=== PATIENT | female | born 1980 | race Caucasian/White ===

== ENCOUNTER 2017-07-16 15:56 | Inpatient (IN) | payer OTHER ==
[~2017-07-16] VITALS: Ht 160 cm; Wt 104.3 kg
--- NOTE | 2017-07-16 16:55 | NUR ---
PT IN ED WITH C/O BILATERAL FOOT PAIN AND SWELLING X3 DAYS, PT ALSO HAS BLISTERS BETWEEN ALL HER TOES, PER PT HER HANDS ARE ALSO SWOLLEN, PT REPORTS BILATERAL LEG PAIN; PER PT HX OF HTN; PT REPORTS HER STEP DAD HAS MRSA AND SHE HAS RECENTLY BEEN WORKING ON HIS HOUSE; DR. MAYNARD AT BEDSIDE FOR MSE
--- NOTE | 2017-07-16 17:00 | NUR ---
PT DENIES ANY CHANCE OF , REPORTS TUBAL LIGATION AND LMP WAS 07/10/17, REPORTS UNABLE TO GO TO RESTROOM AT THIS TIME
[2017-07-16 17:24] LABS: BASOPHIL % 0.7 % (0-2); PLATELET COUNT 368 x10^3mcL (130-400); RED CELL DISTRIBUTION WIDTH 14.1 % (11.5-14.5)
--- NOTE | 2017-07-16 18:16 | NUR ---
NOTIFIED LAB THAT CMP IS NOT RECEIVED, ROTARY DRIER GOING TO LAB TO CHECK ON BLOOD, CBC ALREADY RESULTED
--- NOTE | 2017-07-16 18:21 | NUR ---
PT AAO4, NO ACUTE DISTRESS
--- NOTE | 2017-07-16 18:38 | NUR ---
AWAITING CMP TO BE RESULTED, CANNOT GO UP UNTIL RESULTED PER DR. MAYNARD
--- NOTE | 2017-07-16 18:45 | NUR ---
WOUND CULTURE OBTAINED ON LEFT FOOT BETWEEN BIG TOE AND SECOND TOE. PT STATED IT HURT 05/20 TO TOUCH. PT PROVIDED WITH SANDWICH AND SPRITE PER DR. MAYNARD APPROVAL.
--- NOTE | 2017-07-16 18:47 | NUR ---
CMP STILL PENDING
--- NOTE | 2017-07-16 18:57 | NUR ---
PER LAB 10 MORE MINUTES FOR CMP, REPORTS IT IS RUNNING NOW
[2017-07-16 18:59] LABS: CHLORIDE SERUM 103 mmol/L (98-107); CREATININE SERUM 0.7 mg/dL (0.6-1.0); GFR1 > 60 mL/min; GLUCOSE SERUM 106 mg/dL (74-106); POTASSIUM SERUM 3.4 mmol/L (3.5-5.1)
[2017-07-16 19:00] LABS: SODIUM SERUM 139 mmol/L (136-145)
[2017-07-16 19:04] LABS: ALBUMIN 3.4 g/dL (3.4-5.0); ALKALINE PHOSPHATASE 92 U/L (46-116); ALT/SGPT 40 U/L (14-59); AST/SGOT 25 U/L (15-37); BILIRUBIN TOTAL 0.31 mg/dL (0.20-1.00); TOTAL PROTEIN, SERUM 7.8 g/dL (6.4-8.2)
[2017-07-16 19:08] LABS: microscopic required? NO
--- NOTE | 2017-07-16 19:10 | NUR ---
REPORT TO LEATHA ANDERSON TO ASSUME CARE OF PT, PT TO BE TRANSFERRED TO ROOM 260
--- NOTE | 2017-07-16 19:17 | NUR ---
CALLED ADMITTING FOR [facility], THEY DO NOT HAVE, NOT FOUND IN ED
[2017-07-16 19:21] LABS: UA SPECIFIC GRAVITY >=1.030 (1.005-1.035); urine erythrocyte NEGATIVE (NEGATIVE)
--- NOTE | 2017-07-16 19:21 | NUR ---
[facility] NOTIFIED THAT PT IS READY TO GO UPSTAIRS.
[2017-07-16 19:38] LABS: AMPHETAMINE QUAL UR POSITIVE (NEG <=1000)
[2017-07-16 20:08] LABS: T3 TOTAL 0.99 ng/mL
--- NOTE | 2017-07-16 20:30 | NUR ---
RECEIVED PT IN BED AAOX4 NO ACUTE DISTRESS NOTED, NOTED PT'S UPPER EXTR AND LOWER EXT SWELLING BILAT TOES WITH OPEN WOUNDS SOME WOUNDS ARE DRAINING PUS WITH STRONG ODOR , PT'S ON TELE NSR , PIV TO RFA INTACT INFUSING WELL LUNG SOUNDS CTA , ABD SOFT BS ACTIVE X4 QUADRANT , CALL LIGHT WITHIN PT'S REACH, WILL CON'T TO MONITOR AND ASSIST PT WITH CARE .
[2017-07-16 20:31] LABS: FREE T4 1.02 ng/dL (0.76-1.46); FREE THYROXINE INDEX 3.2 ug/dL (1.4-4.5)
[2017-07-16 20:32] VITALS: BP 128/67
--- NOTE | 2017-07-16 20:38 | NUR ---
RECEIVED PT FROM ED VIA TARA. ORIENTED PT TO ROOM AND SURROUNDINGS. IV NOTED TO RFA PATENT AND INTACT .TELE 27 PLACED ON PT READING NSR. INSTRUCTED PT ON THE USE OF CALL LIGHT FOR ASSISTANCE. ENDORSED PT TO PRIMARY NURSE LEATHA
[2017-07-16 20:54] LABS: MAGNESIUM 1.9 mg/dL (1.8-2.4); PHOSPHOROUS 3.5 mg/dL (2.5-4.9)
[2017-07-16 21:05] LABS: CHOLESTEROL/HDL RATIO 2.8
--- NOTE | 2017-07-16 21:06 | NUR ---
PT C/O PAIN 10/10 BILAT LOWER EXTR DILAUDID 2MG GIVEN PO .
[2017-07-16 21:14] VITALS: BP 128/67
--- NOTE | 2017-07-16 22:09 | NUR ---
RECEIVED PATIENT FROM LEATHA MUSCULOSKELETAL PHYSICIAN, PATIENT RESTING IN BED, IN NO ACUTE DISTRESS, NO C/O PAIN OR SOB AT THIS TIME, BED IN LOW POSITION, BED RAILS UP X 2, CALL LIGHT WITHIN REACH, WILL CONTINUE TO MONITOR
[2017-07-17 06:10] VITALS: BP 108/57
--- NOTE | 2017-07-17 06:33 | NUR ---
PATIENT RESTING IN BED, IN NO ACUTE DISTRESS, NO C/O PAIN AT THIS TIME, NO SIGNIFICANT CHANGES LAST SHIFT, BED IN LOW POSITION, BED RAILS UP X 2, CALL SLIGHT WITHIN REACH, WILL ENDORSE CARE TO ONCOMING NURSE
[2017-07-17 08:04] LABS: BASOPHIL % 0.4 % (0-2); PLATELET COUNT 340 x10^3mcL (130-400); RED CELL DISTRIBUTION WIDTH 14.3 % (11.5-14.5)
--- NOTE | 2017-07-17 08:07 | NUR ---
RECEIVED PT FROM NIGHT NURSE IN NO ACUTE DISTRESS. PT ASLEEP, RESPIRATIONS EVEN AND UNLABORED ON RA. IVF INFUSING AT BEDSIDE. BED IN LOWEST POSITION. CALL LIGHT WITHIN REACH. WILL CONTINUE TO MONITOR.
[2017-07-17 08:18] LABS: CALCIUM 8.3 mg/dL (8.5-10.1); CARBON DIOXIDE 27.1 mmol/L (21-32); CHLORIDE SERUM 106 mmol/L (98-107); CREATININE SERUM 0.5 mg/dL (0.6-1.0); GFR1 > 60 mL/min; GLUCOSE SERUM 103 mg/dL (74-106); MAGNESIUM 1.8 mg/dL (1.8-2.4); POTASSIUM SERUM 4.1 mmol/L (3.5-5.1); SODIUM SERUM 140 mmol/L (136-145)
[2017-07-17 09:50] VITALS: BP 119/50
--- NOTE | 2017-07-17 11:54 | NUR ---
PT SITTING UP IN CHAIR AT BEDSIDE, FEET SUBMERGED IN WARM BETADINE INFUSED WATER. INSTRUCTED TO TAKE FEET OUT OF WATER IN 20 MINS. WILL CONTINUE TO MONITOR.
--- NOTE | 2017-07-17 12:15 | NUR ---
PT STATES THAT SHE LOST FEELING IN LEFT SIDE OF BODY. UNABLE TO SQUEEZE FINGERS WITH L HAND. UNABLE TO WIGGLE LEFT TOES. ASYMMETRICAL SMILE. DR WALLACE NOTIFIED.
[2017-07-17 13:40] VITALS: BP 119/70
--- NOTE | 2017-07-17 16:10 | NUR ---
APPLIED ZGUARD IN BETWEEN PT'S TOES AFTER SUBMERGING IN BETADINE INFUSED WATER.
--- NOTE | 2017-07-17 16:12 | NUR ---
PT TAKEN DOWN TO CT VIA WHEEL CHAIR.
--- NOTE | 2017-07-17 18:56 | NUR ---
PT RESTING IN BED IN NO ACUTE DISTRESS. RESPIRATIONS EVEN AND UNLABORED ON RA. AAOX4. IVF INFUSING AT BEDSIDE. ZOFRAN GIVEN FOR NAUSEA. BED IN LOWEST POSITION. CALL LIGHT WITHIN REACH. WILL ENDORSE TO NIGHT NURSE.
--- NOTE | 2017-07-17 19:30 | NUR ---
PT IS ALERT AND ORIENTED X 4. PLEASANT AND COOPERIATVE. LUNG CLEAR ON AUSCULTATIONS BILATERALLY UPPER AND LOWER BASES. GENERALIZED WEAKNESS BUT ABLE TO AMBULATE WITH SOME STANBY ASSISTANCE. STABLE. STILL HAS IV NS AT NS INFUSING WELL. C/O PAIN TO BOTH FEET AND NOTED SOME SWELLING OF BOTH FEET AND SOME MILD REDNESS AND SORES IN BETWEEN TOES. MARKED. NOTED C/O PAIN. BUT REFUSED MEDICATIONS FOR NOW. WILL MONITOR.
[2017-07-17 21:31] VITALS: BP 105/58
--- NOTE | 2017-07-18 05:28 | NUR ---
RESTING WELL. MADE COMFORTABLE IN BED. STILL HAS IV NS AT 120 ML PER HOUR INFUSING WELL IN THE RIGHT FOREARM. AMBULATED TO THE BATHROOM. WILL MONITOR.
--- NOTE | 2017-07-18 05:45 | NUR ---
PT C/O MODERATE FOOT PAIN/ CELLULITIS 01/18. MEDICATED WITH NORCO 1 TAB PO. WILL MONITOR. CLEOCIN IS ADMINISTERED.
[2017-07-18 06:14] VITALS: BP 113/64
[2017-07-18 06:18] VITALS: BP 113/64
[2017-07-18 07:10] LABS: BASOPHIL % 0.4 % (0-2); PLATELET COUNT 353 x10^3mcL (130-400); RED CELL DISTRIBUTION WIDTH 14.1 % (11.5-14.5)
[2017-07-18 07:27] LABS: CALCIUM 8.5 mg/dL (8.5-10.1); CARBON DIOXIDE 27.1 mmol/L (21-32); CHLORIDE SERUM 106 mmol/L (98-107); CREATININE SERUM 0.5 mg/dL (0.6-1.0); GFR1 > 60 mL/min; GLUCOSE SERUM 106 mg/dL (74-106); SODIUM SERUM 138 mmol/L (136-145)
[2017-07-18 09:55] VITALS: BP 128/75
--- NOTE | 2017-07-18 11:12 | NUR ---
AT 0720 - RECEIVED PATIENT FROM NIGHT NURSE. PATIENT SLEEPING. RESPIRATIONS REGULAR. MONITOR SHOWING SINUS RHYTHM; RATE 70'S. DENIS FEET EXPOSED TO AIR. AT 0855 - SEEN BY DR SOLIS DURING MORNING ROUNDS. MEDICAL TEAM DOCTORS, TALON HODGES AND MYSELF PRIMARY NURSE ALSO PRESENT. POSSIBLE DC HOME LATER TODAY. AT 0915 - PATIENT DECLINED TO EAT AT THIS TIME. AMBULATED TO BATHROOM WITH ASSISTANCE. PATIENT ENCOURAGED TO ALWAYS WEAR SOCKS OR SHOES AND NOT TO WALK BAREFOOT. AT 0955 - MEDICATED WITH NORCO FOR PAIN IN FEET AND HEADACHE. AT 1020 - RECEIVED CALL FROM PATIENT'S DAUGHTER SHAHNAZ TEL: [phone] WALLACE TO CALL DAUGHTER SHE HAS QUESTIONS.
[2017-07-18 11:40] VITALS: BP 119/72
--- NOTE | 2017-07-18 12:56 | NUR ---
PATIENT C/O NUMBNESS AND TINGLING SENSATION IN LLE. DR WALLACE NOTIFIED. PATIENT WILL BE ORDERED GABAPENTIN.
--- NOTE | 2017-07-18 15:39 | NUR ---
PATIENT SLEEPING MOST OF THE DAY. AMBULATES TO BATHROOM WITH ASSISTANCE. C/O FOOT PAIN BUT SAYS THAT SHE DOES NOT WANT TO TAKE ANY MORE PAIN MEDICATION. HAS BEEN COMMENCED ON GABAPENTIN AND FIRST DOSE ADMINSITERED. PATIENT CURRENTLY SOAKING FEET IN WARM WATER WITH BETEDINE.
--- NOTE | 2017-07-18 17:30 | NUR ---
NOTED THAT LAB HAS NOT RECEIVED WOUND CULTURE ON THIS PATIENT. SPOKE WITH DR WALLACE AND MADE HIM AWARE OF IT. PATIENT ALREADY ON ANTIBIOTICS FOR 2 DAYS AND ALSO HAVING BETADINE SOAKS. TO BE REVIEWED TOMORROW.
[2017-07-18 18:47] VITALS: BP 129/76
--- NOTE | 2017-07-18 18:55 | NUR ---
RESTING QUIETLY. VSS. AFEBRILE. IV INFUSING NS AT 100ML/HR. WILL ENDORSE CARE TO NIGHT NURSE.
--- NOTE | 2017-07-18 19:30 | NUR ---
PT IS RESTING WELL. LUNGS CLEAR ON AUSCULTATIONS BILATERALLY. AMBULATORY. DENIES ANY PAIN OR DISCOMFORT. PT HAS SORES IN BETWEEN TOES/CELLULITIS. PT IS ENCOURAGED TO WEAR SOCKS/ SLIPPER WHEN SHE AMBULATING. STILL HAS IV NS AT 100 ML PER HOUR INFUSING WELL IN THE RIGHT FOREARM.PATENT AND INTACT. STILL GETTING CLEOCIN AND LEVAQUIN IV. PT IS RECEIVING HEPARIN SQ. NO C/O NUMBNESS AND TINGLING LLE. REFUSED GABAPENTIN TONIGHT. DENIES ANY PAIN OR REFUSED ANY ORAL MEDICATIONS TONIGHT BECAUSE SHE IS DIZZY. WILL CONTINUE TO MONITOR.
[2017-07-18 21:14] VITALS: BP 110/60
--- NOTE | 2017-07-18 23:45 | NUR ---
PT WAS TEARFUL, CRYING ABOUT HER CONDITION AT HOME. SHE WAS WORRIED ABOUT HER PARENTS HOUSE AND HER 5 YEAR OLD DAUGHTER. SHE LEFT A MESSAGE TO HER MAOTHER IN LAW AND CHRISTIANO CALLED BACK. SHAHNAZ HER ALSO DAUGHTER STATED THAT SHE IS RESPONSIBLE FOR HER MOTHER THE PT WHEN SHE GOES HOME. TO NOTIFY SHAHNAZ AT THIS NUMBER IF SHE WILL BE DISCHARGED [phone]. WILL CONTINUE TO MONITOR.
--- NOTE | 2017-07-19 05:37 | NUR ---
PT IS RESTING. STILL HAS IV NS AT 120 ML PER HOUR INFUSING WELL. NEW IV IN THE LEFT HAND. ANGIOCATH GUAGE 22. STILL GETTING CLEOCIN IVPB FOR DENIS FOOT CEELULITIS, NO ADVERSE REACTION NOTED. WILL MONITOR.
[2017-07-19 06:13] VITALS: BP 107/59
[2017-07-19 10:18] VITALS: BP 109/48
--- NOTE | 2017-07-19 12:44 | NUR ---
AT 0715 - RECEIVED PATIENT FROM NIGHT NURSE. SLEEPING. RSPIRATIONS REGULAR. MONITOR SHOWING SINUS RHYTHM; RATE 70'S. IV INFUSING NS AT 120ML/HR. CONTINUING TO MONITOR. AT 0830 - PATIENT STIL SLEEPING. WOKEN UP FOR BREAKFAST BUT DECLINED TO EAT. C/O DENIS FEET PAIN BUT REFUSING TO TAKE ANY PAIN MEDICATIONS. AT 0905 - SEEN BY DR MARTINEZ DURING MORNING ROUNDS. MEDICAL TEAM DOCTORS, TALON HODGES AND MYSELF PRIMARY NURSE ALSO PRESENT. DR MARTINEZ SPOKE WITH PATIENT AT LENGTH AND ANSWERED HER QUESTIONS. AT 0920 - DR DARLING AT BEDSIDE. WOUND CULTURE COLLECTED BY DR DARLING. FEET CLEANED BY AND LOTRIMIN 1% CLEAM APPLIED BY DR WITH FOLLOWING INSTRUCTIONS FOR WOUND CARE TODAY: KEEP GAUZE IN BETWEEN TOES PLACED BY , UNTIL EARLY AFTERNOON. PATIENT TO HAVE BETADINE FOOT BATH IN EARLY PM TODAY. REAPPLY LOTRIMIN CREAM, INCLUDING [id number] AND PLACE GAUZE BETWEEN TOES. KEEP GAUZE IN PLACE UNTIL TOMORROW AM. AT 0930 - ALBERT TORADOL FOR PAIN. ALSO COMMENCED ON ELAVIL AND RESPIDAL PER NEW ORDERS. AT 1200 - PATIENT SLEEPING MOST OF THE MORNING.
[2017-07-19 13:40] VITALS: BP 96/49
--- NOTE | 2017-07-19 13:41 | NUR ---
PATIENT SITTING ON SIDE OF BED WITH FEET IN WARM BETADINE BATH INSTRUCTED BY DR DARLING. PATIENT ATE ONLY SMALL AMOUNT OF LUNCH. PATIENT IS VERY SLEEPY - SAYS SHE WANTS TO SLEEP.
--- NOTE | 2017-07-19 14:10 | NUR ---
AFTER BETADINE FOOT BATH, FEET DRESSED INSTRUCTED BY DR DARLING. LOTRIMIN 1% APPLIED TO FEET AND TOES AND GAUZE INSERTED IN BETWEEN TOES.
[2017-07-19 16:40] VITALS: BP 121/57
--- NOTE | 2017-07-19 17:35 | NUR ---
PATIENT AWAKE AND CRYING. APPEARS ANXIOUS. REASSURANCE PROVIDED. PATIENT SPOKE WITH HER DAUGHTER AND HER MOTHER OVER THE PHONE. SEEN BY DR DESAI. CONTINUE WITH CURRENT TREATMENT. FOR CONSULT WITH DR LYONS.
--- NOTE | 2017-07-19 18:40 | NUR ---
PATIENT'S DAUGHTER AT BEDSIDE. APPEARS CALMER AT THIS TIME. VSS AND WNL. AFEBRILE. PAIN APPEARS UNDER CONTROL. GAUZE REMAINS IN PLACE BETWEEN TOES. FEET OPEN TO AIR EXCEPT WHEN PATIENT AMBULATING TO BATHROOM IN WHICH CASE SHE WEARS HOSPITAL SOCKS. IV INFUSING NS AT 120ML/HR. WILL ENDORSE CARE TO NIGHT NURSE.
--- NOTE | 2017-07-19 19:30 | NUR ---
PT IS A/O x4. ON TELE #27, NSR. DENIES ANY CHEST PAIN AND PRESSURE. PULSES ARE PRESENT. NO EDEMA NOTED. LUNGS CLEAR IN ALL FEILDS. BOWEL SOUNDS x4. GAUZE BETWEEN TOES CLEAN AND INTACT, SOCKS ARE REMOVE, AND FEET ARE KEPT OUT OF THE BLANKET. DENIES PAIN AT THIS MOMENT. IV ON RFA INTACT AND RUNNINE PER MD ORDER. BED AT LOWEST SETTING. CALL LIGHT WITHIN REACH. WILL CONTINUE TO MONITOR.
[2017-07-19 21:08] VITALS: BP 123/56
--- NOTE | 2017-07-20 00:28 | NUR ---
PT IS ANXIOUS AND IS COMPLAINING ABOUT FOOT PAIN. GAVE PRN MEDICATION PER OCT. PT WAS ALSO COMPLAINING ABOUT BEING UNABLE TO GET SOME REST. DR. JOHN WAS NOTIFIED AND AMBIEN WAS ORDERED. AMBIEN WAS GIVEN TO THE PT PER OCT. MADE PT COMFORTABLE IN BED. BED IN LOWEST SETTING. CALL LIGHT WITHIN REACH. WILL CONTINUE TO [facility].
[2017-07-20 05:28] VITALS: BP 132/76
--- NOTE | 2017-07-20 05:52 | NUR ---
PT IS SLEEPING IN BED. NO SIGN OF DISTRESS IS NOTED. FEET GUAZE IS INTACT AND IN BETWEEN THE TOES. NO DRAINAGE NOTED. IV IS PATENT AND INFUSING PER MD ORDER. NO SIGN OF INFILTRATION. BED IS IN LOWEST SETTING. CALL LIGHT IS WITHIN REACH. WILL ENDORSE TO AM NURSE.
[2017-07-20 07:13] LABS: BASOPHIL % 0.6 % (0-2); PLATELET COUNT 368 x10^3mcL (130-400); RED CELL DISTRIBUTION WIDTH 14.2 % (11.5-14.5)
[2017-07-20 07:14] LABS: CARBON DIOXIDE 28.5 mmol/L (21-32); CHLORIDE SERUM 105 mmol/L (98-107); CREATININE SERUM 0.6 mg/dL (0.6-1.0); GFR1 > 60 mL/min; GLUCOSE SERUM 95 mg/dL (74-106); SODIUM SERUM 137 mmol/L (136-145)
--- NOTE | 2017-07-20 07:31 | NUR ---
RECEIVED PATIENT FROM NIGHT NURSE. PATIENT SLEEPING. RESPIRATIONS REGULAR. MONITOR SHOWING SINUS RHYTHM; RATE 79. IV INFUSING NS AT 120ML/HR. GAUZE DRESSINGS REMAIN IN PLACE B/W TOES. OTHERWISE FEET OPEN TO AIR.
--- NOTE | 2017-07-20 08:11 | NUR ---
AWAKE BRIEFLY. SAYS SHE DOESN'T WANT TO EAT. NO C/O PAIN AT THIS TIME.
[2017-07-20 10:00] VITALS: BP 120/64
[2017-07-20 14:01] VITALS: BP 93/57
--- NOTE | 2017-07-20 15:03 | NUR ---
AT 0950 - SEEN BY DR MARTINEZ DURING MORNING ROUNDS. MEDICAL TEAM DOCTORS, TALON HODGES AND MYSELF PRIMARY NURSE ALSO PRESENT. DR MARTINEZ SPOKE WITH PATIENT ABOUT CONTINUATION OF TREATMENT. AT 1000 - MEDICATED WITH TOADOL FOR PAIN. AT 1030 - DR DARLING AT BEDSIDE. DRESSINGS TO FEET CHANGED. FOLLOW THE SAME TREATMENT YESTERDAY: THIS AFTERNOON: - WARM WATER BETIDINE BATH FOR 20 MIN APPLY LOTRAMINE CREAM B/W TOES. PLACE DRY GAUZE BETWEEN TOES. LEAVE IN PLACE UNTIL TOMORROW AM. PATIENT SLEEPING MOST OF THEMORNING. AT 1430 - FAMILY VISITING. PATIENT NOW EATING SMALL AMOUNT OF FOOD FO LUNCH.
[2017-07-20 17:20] VITALS: BP 110/59
[2017-07-20 18:19] VITALS: BP 110/59
--- NOTE | 2017-07-20 19:30 | NUR ---
PT IS A/O x4. TELE #27 NSR. DENIES ANY CHEST PAIN AND PRESSURE. NO EDEMA NOTED. PULSES PRESENT. LUNGS CLEAR IN ALL [place]. ON ROOM AIR. BOWEL SOUNDS ACTIVE x4. GUAZES BETWEEN BILATERAL TOES ARE CLEAN AND INTACT. PT ON BED WITH SOCKS OFF. IV ON LFA INTACT AND PATENT WITH NO SIGN OF INFILTRATION. NS RUNNING PER MD ORDER. BED IN LOWEST SETTING. CALL LIGHT IN REACH. WILL CONTINUE TO MONITOR.
--- NOTE | 2017-07-20 19:33 | NUR ---
AT 1700 - PATIENT HAD BETADINE FOOT BATH AFTER RECEIVING TORADOL IV FOR PAIN. LOTRAMINE CREAM APPLIED TO FEET WITH GAUZE IN B/W TOES. SEEN BY DR DESAI. NEW ORDERS RECEIVED. AT 1910 - VSS. AFEBRILE. CARE ENDORSED TO NIGHT NURSE.
[2017-07-20 21:40] VITALS: BP 130/76
[2017-07-21 05:24] VITALS: BP 102/57
--- NOTE | 2017-07-21 05:27 | NUR ---
PT IS SLEEPING IN BED. NO SIGN OF DISTRESS NOTED. GUAZES BETWEEN TOES IS IN PLACE. NO DRAINAGE NOTED. SOCK AND BLANKETS ARE OFF FEET. IV IS PATENT AND INFUSING, NO SIGN OF INFILTRATION. BED IN LOWEST SETTING. CALL LIGHT WIHTIN REACH. WILL ENDORSE TO AM NURSE.
[2017-07-21 07:02] LABS: BASOPHIL % 0.4 % (0-2); RED CELL DISTRIBUTION WIDTH 14.5 % (11.5-14.5)
[2017-07-21 07:06] LABS: PLATELET COUNT 402 x10^3mcL (130-400)
--- NOTE | 2017-07-21 08:00 | NUR ---
PT RECEIVED AAOX4, CONVERSING WELL IN FULL SENTENCES. RESP EVEN AND UNLABORED ON RA. DENIES ANY SOB OR COUGH. TELE #27, SR, HR 88. DENIES ANY CP OR PRESSURE. IV ON LFA INTACT, 22G, INFUSING NS AT 120ML/HR. ABD ROUND/SOFT WITH ACTIVE BS IN ALL QUADS. DENIES ANY ABD PAIN OR PRESSURE. VOIDING WELL WITH BRP. AMBULATORY WITH NONSLIP SOCKS ON. BILATERAL FEET KEPT UNCOVERED AND SKY DIVER WITH GAUZE DRESSING IN BETWEEN TOES. DENIES ANY PAIN OR DISCOMFORT AT THIS TIME. CALL LIGHT WITHIN REACH.
[2017-07-21 09:50] VITALS: BP 111/62
--- NOTE | 2017-07-21 11:45 | NUR ---
PT REFUSING TO AMBULATE AT THIS TIME. DR WALLACE MADE AWARE. DR WALLACE AT BEDSIDE TO DISCUSS DISCHARGE WITH PATIENT. PT AGREEABLE TO DC PLAN.
[2017-07-21] MEDS ORDERED: RISPERIDONE1 MG PO (12:07)
[2017-07-21] MEDS ORDERED: CLOTRIMAZOLE1% TOP (12:07)
[2017-07-21] MEDS ORDERED: AMITRIPTYLINE H10 MG PO (12:07)
[2017-07-21] MEDS ORDERED: BD LACTINEX1.4 MG PO (12:07)
[2017-07-21] MEDS ORDERED: SEROQUEL100 MG PO (12:07)
[2017-07-21] MEDS ORDERED: LEVAQUIN750 MG PO (12:07)
[2017-07-21 12:43] VITALS: BP 115/77
--- NOTE | 2017-07-21 13:07 | NUR ---
BILATERAL FEET SOAKED IN WARM IODINE INFUSED WATER ORDERED. PT TAUGHT HOW TO DO BILATERAL FEET SOAKS AT HOME. ADVISED PT TO CALL IF ASSISTANCE IS NEEDED. CALL LIGHT WITHIN REACH.
--- NOTE | 2017-07-21 14:10 | NUR ---
PT AGREEABLE TO DISCHARGE PLAN. CALLED DAUGHTER REQUESTED BY PATIENT. PER DAUGHTER, SHE WILL BE HERE AFTER 17[address] PATIENT. DR WALLACE MADE AWARE.
--- NOTE | 2017-07-21 15:41 | NUR ---
PT MEDICATED WITH ATIVAN PO FOR EARLIER C/O ANXIETY WITH GOOD EFFECT. PT RESTING COMFORTABLY IN BED. CHATTING ON PHONE. VISITOR AT BEDSIDE DENIES ANY NEEDS AT THIS TIME. CALL LIGHT WITHIN EASY REACH.
--- NOTE | 2017-07-21 16:14 | NUR ---
PT ABLE TO DEMONSTRATE HOW TO APPLY GAUZE TO BILATERAL FEET. PER PATIENT, DAUGHTER CAN ASSIST HER WITH DRESSING CHANGES AT HOME WELL.
--- NOTE | 2017-07-21 18:11 | NUR ---
PT SITTING UP IN CHAIR. WRITTEN AND VERBAL DISCHARGE INSTRUCTIONS DISCUSSED WITH PATIENT AND DAUGHTER. VERBALIZED UNDERSTANDING OF TEACHINGS GIVEN. IV ON LFA DC'D WITH ANGIOCATH INTACT. PT TOLERATED WELL. DISCHARGED HOME WITH DAUGHTER. AAOX4, NO S/S OF ACUTE DISTRESS ON DEPARTURE.
== END 2017-07-21 18:06 | disposition home or self-care (01) | DRG 720 ==
LOC: ED 15:56 → DU 18:03
PROVIDERS: Emergency Medicine; Student in an Organized Health Care Education/Training Program; ADMIT Family Medicine
DX: A41.9 Sepsis, unspecified organism (principal); E43 Unspecified severe protein-calorie malnutrition; G81.94 Hemiplegia, unspecified affecting left nondominant side; L03.115 Cellulitis of right lower limb; B35.3 Tinea pedis; F15.10 Other stimulant abuse, uncomplicated; Z68.41 Body mass index [BMI] 40.0-44.9, adult; L03.116 Cellulitis of left lower limb; R65.20 Severe sepsis without septic shock; D64.9 Anemia, unspecified; E87.6 Hypokalemia; F41.9 Anxiety disorder, unspecified; E66.01 Morbid (severe) obesity due to excess calories; Z91.19 Patient's noncompliance with other medical treatment and regimen
CPT/HCPCS: 82962; 83880; 84439; J0295; J1644; J1885; J1956; J2405; J3490; J7030; J7620; Q0092

== ENCOUNTER 2017-07-26 15:58 | Emergency (ER) | payer OTHER ==
[~2017-07-26] VITALS: Ht 160 cm; Wt 116.1 kg
[~2017-07-26 15:58] MED LIST: AMITRIPTYLINE H10 MG PO; BD LACTINEX1.4 MG PO; CLOTRIMAZOLE1% TOP; LEVAQUIN750 MG PO; RISPERIDONE1 MG PO; SEROQUEL100 MG PO
[2017-07-26 16:10] VITALS: BP 120/78; Ht 160 cm; Wt 116.1 kg
== END 2017-07-26 18:05 | disposition home or self-care (01) ==
LOC: ED 15:58
DX: H10.502 Unspecified blepharoconjunctivitis, left eye (principal); J00 Acute nasopharyngitis [common cold]; R06.7 Sneezing; I10 Essential (primary) hypertension